=== PATIENT | female | born 1940 | race Asian ===

== ENCOUNTER → 2016-08-30 | Outpatient (CLI) | payer MEDICARE, OTHER | END | disposition home or self-care (01) | LOC: CFH 09:08 | PROVIDERS: ATTEND Nurse Practitioner Family | DX: Z13.820 Encounter for screening for osteoporosis (principal); M85.88 Other specified disorders of bone density and structure, other site; N95.9 Unspecified menopausal and perimenopausal disorder | CPT/HCPCS: 77080 ==

== ENCOUNTER 2017-10-25 12:05 | Inpatient (IN) | payer MEDICARE, OTHER ==
[~2017-10-25] VITALS: Ht 152.4 cm; Wt 50.1 kg
[2017-10-25 14:12] LABS: BASOPHILS # (AUTO) 0.01 x10^3/uL (0-0.1); BASOPHILS % (AUTO) 0 % (0-1); EOSINOPHILS # (AUTO) 0.24 x10^3/uL (0-0.4); EOSINOPHILS % (AUTO) 3 % (1-7); LYMPHOCYTES # (AUTO) 1.75 x10^3/uL (1-3.4); LYMPHOCYTES % (AUTO) 22 % (22-44); MD NO; MEAN CORPUSCULAR HEMOGLOBIN 30.1 pg (27.0-34.8); MEAN CORPUSCULAR HGB CONC 33.9 g/dL (32.4-35.8); MONOCYTES # (AUTO) 0.38 x10^3/uL (0.2-0.8); MONOCYTES % (AUTO) 5 % (2-9); NEUTROPHILS # (AUTO) 5.61 x10^3/uL (1.8-6.8); NEUTROPHILS % (AUTO) 70 % (42-75); PLATELET COUNT 321 x10^3/uL (130-400); RED BLOOD COUNT 4.84 x10^6/uL (3.82-5.3); RED CELL DISTRIBUTION WIDTH 14.6 % (9.6-15.2)
[2017-10-25 14:18] LABS: ALBUMIN 4.1 g/dL (3.4-5.0); ANION GAP 8 mmol/L (5-15); CHLORIDE 103 mmol/L (98-107); CREATININE 0.85 mg/dL (0.55-1.02)
[2017-10-25 14:30] LABS: INTERNATIONAL NORMALIZED RATIO 0.96 (0.93-1.1)
[2017-10-25] MEDS ORDERED: LIOT25TA3 PO (15:04)
[2017-10-25] MEDS ORDERED: SODIUM CHLORIDE FLUSH 10ML SYR IVF PRN (15:30)
[2017-10-25] MEDS ORDERED: ENALAPRILAT 1.25 MG/ML, 2ML IVPush PRN (16:30)
[2017-10-25] MEDS ORDERED: ONDANSETRON ODT 4 MG PO PRN (16:30)
[2017-10-25] MEDS ORDERED: LABETALOL 5MG/ML, 20ML IVPush PRN (16:30)
[2017-10-25] MEDS ORDERED: ACETAMINOPHEN 325 MG TABLET PO PRN (16:30)
[2017-10-25] MEDS ORDERED: POLYETHYLENE GLYCOL 17 GM PACKET PO PRN (16:30)
[2017-10-25 20:54] VITALS: BP 180/96
[2017-10-26 04:00] VITALS: BP 134/72
[2017-10-26 04:30] LABS: BASOPHILS # (AUTO) 0.03 x10^3/uL (0-0.1); BASOPHILS % (AUTO) 0 % (0-1); EOSINOPHILS # (AUTO) 0.45 x10^3/uL (0-0.4); EOSINOPHILS % (AUTO) 5 % (1-7); LYMPHOCYTES # (AUTO) 2.71 x10^3/uL (1-3.4); LYMPHOCYTES % (AUTO) 32 % (22-44); MD NO; MEAN CORPUSCULAR HEMOGLOBIN 29.8 pg (27.0-34.8); MEAN CORPUSCULAR HGB CONC 33.2 g/dL (32.4-35.8); MEAN CORPUSCULAR VOLUME 89.7 fL (80-100); MEAN PLATELET VOLUME 7.1 fL (7.4-10.4); MONOCYTES # (AUTO) 0.53 x10^3/uL (0.2-0.8); MONOCYTES % (AUTO) 6 % (2-9); NEUTROPHILS # (AUTO) 4.78 x10^3/uL (1.8-6.8); NEUTROPHILS % (AUTO) 56 % (42-75); PLATELET COUNT 276 x10^3/uL (130-400); RED BLOOD COUNT 4.18 x10^6/uL (3.82-5.3); RED CELL DISTRIBUTION WIDTH 14.4 % (9.6-15.2)
[2017-10-26 04:41] LABS: ALANINE AMINOTRANSFERASE 18 U/L (12-78); ALBUMIN 3.1 g/dL (3.4-5.0); ANION GAP 9 mmol/L (5-15); CALCIUM 8.2 mg/dL (8.5-10.1); CHLORIDE 106 mmol/L (98-107); CREATININE 0.85 mg/dL (0.55-1.02)
[2017-10-26 04:52] LABS: ALKALINE PHOSPHATASE 38 U/L (45-117); BILIRUBIN,TOTAL 0.9 mg/dL (0.2-1.0); TOTAL PROTEIN 6.6 g/dL (6.4-8.2)
[2017-10-26] MEDS ORDERED: POTASSIUM CHLORIDE 20 MEQ TAB.ER.PRT PO ONE (08:00)
[2017-10-26] MEDS ORDERED: SENNA/DOCUSATE TABLET PO SCH (09:00)
[2017-10-26] MEDS ORDERED: LIOTHYRONINE 5 MCG TABLET PO SCH (09:00)
== END 2017-10-26 11:15 | disposition home or self-care (01) | DRG 84 ==
LOC: ED 15:11 → EDIP 15:12 → ED 15:14 → CCU 17:35 → DCLOUNGE 10-26 11:03
PROVIDERS: ADMIT Internal Medicine; ATTEND Internal Medicine
DX: S06.5X9A Traumatic subdural hemorrhage with loss of consciousness of unspecified duration, initial encounter (principal); E03.9 Hypothyroidism, unspecified; I10 Essential (primary) hypertension; I73.9 Peripheral vascular disease, unspecified; M19.90 Unspecified osteoarthritis, unspecified site; M79.7 Fibromyalgia; Z79.890 Hormone replacement therapy; W01.0XXA Fall on same level from slipping, tripping and stumbling without subsequent striking against object, initial encounter; Y93.89 Activity, other specified; Y92.89 Other specified places as the place of occurrence of the external cause; Y99.8 Other external cause status
CPT/HCPCS: 36415; 70450; 72110; 72220; 80048; 80053; 82040; 84443; 85025; 85610; 85730; 87081; 96374; 96375

== ENCOUNTER → 2017-11-24 | Outpatient (CLI) | payer MEDICARE, OTHER ==
[~2017-11-24] MED LIST: LIOT25TA3 PO
== END | disposition home or self-care (01) ==
LOC: CFH 10:48
PROVIDERS: ATTEND Neurological Surgery
DX: G31.9 Degenerative disease of nervous system, unspecified (principal); R90.82 White matter disease, unspecified; S09.90XA Unspecified injury of head, initial encounter; X58.XXXA Exposure to other specified factors, initial encounter
CPT/HCPCS: 70450

== ENCOUNTER 2020-08-18 14:45 | Emergency (ER) | payer MEDICARE, OTHER ==
[~2020-08-18] VITALS: Ht 152.4 cm; Wt 50.0 kg
[~2020-08-18 14:45] MED LIST changes: +LIOT25TA12 PO; -LIOT25TA3 PO
--- NOTE | 2020-08-18 15:11 | NUR ---
PT BIBA. PER EMS PT HAD NECK PAIN YESTERDAY AND HAS A HEADACHE TODAY. PT WAS AT PCP AND BP WAS 217/117. PER PT SHE USED TO TAKE BP MEDICATIONS BUT HASN'T FOR 2 YEARS, PT MONITORS BP DAILY. PT REPORTS BP IS USUALLY 130S/70S. PT'S BP IS CURRENTLY 215/105. PT RESTING IN [facility], EKG DONE, MONITORING IN PLACE, DR. BERNSTEIN AT BEDSIDE, NADN AT THIS TIME, PT STATES HEAD PAIN IS 4/10, WILL CONTINUE TO MONITOR.
[2020-08-18] MEDS ORDERED: HYDROcodone/APAP 5/325 TABLET ONE (15:16)
--- NOTE | 2020-08-18 15:18 | NUR ---
PT STATES HEAD PAIN IS 4/10, NECK PAIN IS 9/10. PT MEDICATED PER EMAR, NADN AT THIS TIME, WCTM.
[2020-08-18] MEDS ORDERED: HYDROcodone/APAP 5/325 TABLET PO ONE (15:30)
[2020-08-18 15:32] LABS: BASOPHILS % (AUTO) 1 % (0-1); EOSINOPHILS % (AUTO) 5 % (1-7); LYMPHOCYTES % (AUTO) 22 % (22-44); MEAN CORPUSCULAR HEMOGLOBIN 29.7 pg (27.0-34.8); MEAN CORPUSCULAR HGB CONC 32.7 g/dL (32.4-35.8); MEAN PLATELET VOLUME 7.1 fL (7.4-10.4); MONOCYTES % (AUTO) 8 % (2-9); NEUTROPHILS % (AUTO) 65 % (42-75); PLATELET COUNT 294 x10^3/uL (130-400); RED BLOOD COUNT 4.67 x10^6/uL (3.82-5.3); RED CELL DISTRIBUTION WIDTH 13.7 % (9.6-15.2)
[2020-08-18 15:34] LABS: MD NO
[2020-08-18 15:42] LABS: ALBUMIN 3.6 g/dL (3.4-5.0); ANION GAP 9 mmol/L (5-15); CALCIUM 8.6 mg/dL (8.5-10.1); CHLORIDE 108 mmol/L (98-107); CREATININE 0.95 mg/dL (0.55-1.02)
[2020-08-18 15:52] LABS: FREE T4 (FREE THYROXINE) 0.73 ng/dL (0.76-1.46)
[2020-08-18 16:57] VITALS: BP 170/89
--- NOTE | 2020-08-18 16:58 | NUR ---
PT STATES SHE HAS NO PAIN WHEN SHE MOVES HER HEAD AND NECK BUT NECK PAIN IS 6/10 IF SHE MOVES.
== END 2020-08-18 17:34 | disposition home or self-care (01) ==
LOC: ED 17:15
DX: S16.1XXA Strain of muscle, fascia and tendon at neck level, initial encounter (principal); R51.9 Headache, unspecified; R94.31 Abnormal electrocardiogram [ECG] [EKG]; I10 Essential (primary) hypertension; X58.XXXA Exposure to other specified factors, initial encounter; Y93.89 Activity, other specified; Y92.89 Other specified places as the place of occurrence of the external cause; Y99.8 Other external cause status
CPT/HCPCS: 36415; 80048; 82040; 84439; 84443; 85025; 93005; 99284

== ENCOUNTER → 2020-12-25 | Outpatient (CLI) | payer MEDICARE, OTHER | END | disposition home or self-care (01) | LOC: CFH 08:23 | PROVIDERS: ATTEND Nurse Practitioner | DX: Z13.820 Encounter for screening for osteoporosis (principal); N95.8 Other specified menopausal and perimenopausal disorders; M85.80 Other specified disorders of bone density and structure, unspecified site | CPT/HCPCS: 77080 ==

== ENCOUNTER 2021-02-07 15:16 | Emergency (ER) | payer MEDICARE, OTHER ==
[~2021-02-07] VITALS: Ht 149.9 cm; Wt 53.6 kg
[2021-02-07 16:19] LABS: BASOPHILS % (AUTO) 1 % (0-1); EOSINOPHILS % (AUTO) 0 % (1-7); LYMPHOCYTES % (AUTO) 22 % (22-44); MEAN CORPUSCULAR HEMOGLOBIN 30.1 pg (27.0-34.8); MEAN CORPUSCULAR HGB CONC 33.4 g/dL (32.4-35.8); MEAN PLATELET VOLUME 7.4 fL (7.4-10.4); MONOCYTES % (AUTO) 12 % (2-9); NEUTROPHILS % (AUTO) 65 % (42-75); PLATELET COUNT 229 x10^3/uL (130-400); RED BLOOD COUNT 4.52 x10^6/uL (3.82-5.3); RED CELL DISTRIBUTION WIDTH 13.6 % (9.6-15.2)
[2021-02-07 16:29] LABS: ALANINE AMINOTRANSFERASE 19 U/L (12-78); ALBUMIN 3.3 g/dL (3.4-5.0); ANION GAP 8 mmol/L (5-15); CALCIUM 7.9 mg/dL (8.5-10.1); CHLORIDE 104 mmol/L (98-107); CREATININE 1.11 mg/dL (0.55-1.02)
[2021-02-07 16:33] LABS: ALKALINE PHOSPHATASE 49 U/L (45-117); BILIRUBIN,TOTAL 0.3 mg/dL (0.2-1.0); TOTAL PROTEIN 7.8 g/dL (6.4-8.2); TROPONIN I < 0.015 ng/mL (0.000-0.045)
--- NOTE | 2021-02-07 17:34 | NUR ---
PT BROUGHT BACK TO ROOM. AMBULATED TO BR WITHOUT DIFFICULTY.
--- NOTE | 2021-02-07 18:54 | NUR ---
ERP AT NOW.
[2021-02-07 18:55] VITALS: BP 151/89
[2021-02-07] MEDS ORDERED: BENZONATATE 100 MG CAPSULE ONE (19:06)
[2021-02-07] MEDS ORDERED: ONDANSETRON ODT 4 MG ONE (19:06)
--- NOTE | 2021-02-07 19:11 | NUR ---
PT MEDICATED PER ORDERS. TO BE DISCHARGED.
[2021-02-07] MEDS ORDERED: BENZONATATE 100 MG CAPSULE PO ONE (19:30)
[2021-02-07] MEDS ORDERED: ONDANSETRON ODT 4 MG PO ONE (19:30)
== END 2021-02-07 19:30 | disposition home or self-care (01) ==
LOC: ED 18:29
DX: U07.1 COVID-19 (principal); R11.2 Nausea with vomiting, unspecified; I10 Essential (primary) hypertension
CPT/HCPCS: 36415; 71045; 80053; 84484; 85025; 93005; 99285; Q0162; U0003; U0005